=== PATIENT | female | born 1975 | race Caucasian/White ===

== ENCOUNTER 2018-07-06 09:20 | Day surgery (SDC) | payer MEDICAID ==
[~2018-07-06 09:20] MED LIST: CYCLOPENTOLATE 1% 2 ML OPH OPER; MOXIFLOXACIN 0.5% 3 ML OPH OPER; NEPAFENAC 0.1% 3 ML OPH OPER; PHENYLephrine 2.5% 15 ML OPH OPER; TROPICAMIDE 1% 15 ML OPH OPER
[2018-07-06 11:23] LABS: ADD MAN DIFF? NO
[2018-07-06 11:27] LABS: BASOPHIL # 0.1 10^3/ul (0.0-0.1); BASOPHILS % 0.7 % (0.0-2.0); EOSINOPHILS # 0.2 10^3/ul (0.0-0.5); EOSINOPHILS % 2.2 % (0.0-7.0); HEMATOCRIT 37.5 % (37.0-47.0); HEMOGLOBIN 12.4 g/dl (12.0-16.0); LYMPHOCYTES # 2.1 10^3/ul (0.8-2.9); LYMPHOCYTES % 28.7 % (15.0-51.0); MEAN CORPUSCULAR HEMOGLOBIN 27.7 pg (29.0-33.0); MEAN CORPUSCULAR HGB CONC 33.1 g/dl (32.0-37.0); MEAN CORPUSCULAR VOLUME 83.7 fl (82.0-101.0); MONOCYTE # 0.4 10^3/ul (0.3-0.9); MONOCYTES % 5.9 % (0.0-11.0); NEUTROPHIL # 4.5 10^3/ul (1.6-7.5); NEUTROPHILS % 62.1 % (39.0-77.0); PLATELET COUNT 237 10^3/UL (140-415); RED BLOOD COUNT 4.48 10^6/ul (4.20-5.40); RED CELL DISTRIBUTION WIDTH 13.4 % (11.5-14.5)
[2018-07-06 11:27] LABS: WHITE BLOOD COUNT 7.2 10^3/ul (4.8-10.8)
[2018-07-06] MEDS ORDERED: FENTAnyl 50 MCG/ML VIAL ×2 (11:44→12:26)
[2018-07-06] MEDS ORDERED: LIDOCAINE 100 MG SYRINGE (11:44)
[2018-07-06] MEDS ORDERED: ROCURONIUM 50 MG INJ (11:44)
[2018-07-06] MEDS ORDERED: CEFAZOLIN 1 GM INJ (11:44)
[2018-07-06] MEDS ORDERED: PROPOFOL 20 ML (11:44)
[2018-07-06] MEDS ORDERED: MIDAZOLAM 1 MG/ML 2 ML INJ (11:44)
[2018-07-06] MEDS ORDERED: LACTATED RINGER'S 1,000 ML IV (12:00)
[2018-07-06] MEDS ORDERED: METOCLOPRAMIDE 10 MG INJ (12:44)
[2018-07-06] MEDS ORDERED: ONDANSETRON 4 MG INJ (12:44)
[2018-07-06] MEDS ORDERED: FAMOTIDINE 20 MG INJ (12:44)
[2018-07-06] MEDS ORDERED: DEXAMETHASONE 4 MG/ML 5 ML INJ (12:44)
[2018-07-06] MEDS ORDERED: FENTAnyl 50 MCG/ML VIAL IV ×3 (13:00)
[2018-07-06] MEDS ORDERED: OXYCODONE/ACETAMINOPHEN (5/325) TAB PO ×2 (13:00)
[2018-07-06] MEDS ORDERED: ONDANSETRON 4 MG INJ IV (13:00)
[2018-07-06] MEDS ORDERED: MEPERIDINE 25 MG INJ IV (13:00)
[2018-07-06] MEDS ORDERED: TIMOLOL MALEATE/PF 0.5% OCCUDOSE (0.3 ML) (13:16)
[2018-07-06] MEDS ORDERED: TOBRAMYCIN/DEXAMETH 3.5 GM OPH OINT (13:16)
[2018-07-06] MEDS ORDERED: EPINEPHrine 1 MG INJ (13:16)
[2018-07-06] MEDS ORDERED: LIDOCAINE 1% (MPF) 10 ML INJ (13:17)
[2018-07-06] MEDS ORDERED: SUGAMMADEX SODIUM 200 MG/2 ML VIAL IV (13:23)
== END 2018-07-06 16:00 | disposition home or self-care (01) ==
LOC: SDS 09:20
DX: Z30.2 Encounter for sterilization (principal)
CPT/HCPCS: 58565; 84702; 85025; 86850; 86900; 86901; 88300